=== PATIENT | male | born 1960 | race Caucasian/White ===

== ENCOUNTER 2020-10-18 07:32 | Outpatient (REF) | payer BC, SELFPAY ==
[2020-10-18 11:26] LABS: MANUAL DIFF FLAG NO
[2020-10-18 11:39] LABS: Basophils Percent Auto 0.7 % (0-2); Eosinophils Absolute Auto 0.2 X10*3/uL (0.0-0.4); Eosinophils Percent Auto 3.2 % (0-4); Hematocrit 45.4 % (42-52); Hemoglobin 15.1 g/dl (14.0-18.0); Imm Gran Abs Auto 0.01 X10*3/uL (0.00-0.03); Imm Gran Pct Auto 0.2 % (0.0-0.4); Lymphocytes Absolute Auto 1.8 X10*3/uL (1.2-4.9); Mean Corpuscular HGB Conc 33.3 g/dl (31.0-36.0); Mean Corpuscular Hemoglobin 30.4 pg (27.0-33.0); Mean Corpuscular Volume 91.5 fL (80-98); Monocytes Absolute Auto 0.4 X10*3/uL (0.1-1.2); Monocytes Percent Auto 7.3 % (2-11); Neutrophils Absolute Auto 3.5 X10*3/uL (2.0-8.3); Neutrophils Percent Auto 58.6 % (45-73); Platelet Count 268 X10*3/uL (160-400); Red Blood Count 4.96 X10*6/uL (4.60-5.80); Red Cell Distribution Width 12.5 % (11.0-16.0)
[2020-10-18 12:10] LABS: Prostate Specific Antigen 0.82 ng/mL (<0.05-4.0)
[2020-10-18 12:17] LABS: Alanine Aminotransferase 23 U/L (0-40); Albumin Level 4.7 g/dL (3.5-5.0); Alkaline Phosphatase 51 U/L (39-117); Anion Gap 12 (12-20); Aspartate Amino Transferase 20 U/L (5-37); Bilirubin Total 0.6 mg/dL (0.0-1.0); Blood Urea Nitrogen 19 mg/dL (9-16); Calcium 9.4 mg/dL (8.4-10.2); Carbon Dioxide 26 mmol/L (22-29); Chloride 105 mmol/L (96-108); Cholesterol 190 mg/dL; Estimated Glomerular Filt Rate > 60; Glucose Fasting 89 mg/dL (60-99); HDL Cholesterol 46 mg/dL; LDL Cholesterol Calculated 120 mg/dl; Potassium 4.3 mmol/L (3.3-5.1); Sodium 139 mmol/L (135-145); Total Protein 7.6 g/dL (6.5-8.0); Triglycerides 123 mg/dL
== END 2020-10-18 07:33 | disposition home or self-care (01) ==
LOC: HO.HMGCLDS 07:32
PROVIDERS: PCP Internal Medicine Medical Oncology; Visit Provider Internal Medicine Medical Oncology
DX: Z12.5 Encounter for screening for malignant neoplasm of prostate (principal); E66.3 Overweight; N40.0 Benign prostatic hyperplasia without lower urinary tract symptoms
CPT/HCPCS: 36415; 80053; 80061; 84153; 85025

== ENCOUNTER 2020-11-08 11:56 | Outpatient (REF) | payer BC, SELFPAY ==
[2020-11-08 15:08] LABS: Free T4 (Free Thyroxine) 0.83 ng/dL (0.71-1.85); Thyroid Stimulating Hormone 1.93 uIU/mL (0.32-4.0)
== END 2020-11-08 11:57 | disposition home or self-care (01) ==
LOC: HO.HMGCLDS 11:56
PROVIDERS: PCP Internal Medicine Medical Oncology; Visit Provider Internal Medicine Medical Oncology
DX: E78.5 Hyperlipidemia, unspecified (principal); E66.3 Overweight
CPT/HCPCS: 36415; 84439; 84443

== ENCOUNTER 2021-10-25 07:04 | Outpatient (REF) | payer BC, SELFPAY ==
[2021-10-25 11:06] LABS: MANUAL DIFF FLAG NO
[2021-10-25 11:19] LABS: Basophils Absolute Auto 0.1 X10*3/uL (0.0-0.2); Eosinophils Absolute Auto 0.2 X10*3/uL (0.0-0.4); Eosinophils Percent Auto 3.3 % (0-4); Hematocrit 41.7 % (42.0-52.0); Hemoglobin 14.1 g/dl (14.0-18.0); Imm Gran Abs Auto 0.02 X10*3/uL (0.00-0.03); Imm Gran Pct Auto 0.4 % (0.0-0.4); Lymphocytes Absolute Auto 1.7 X10*3/uL (1.2-4.9); Lymphocytes Percent Auto 33.2 % (20-40); Mean Corpuscular HGB Conc 33.8 g/dl (31.0-36.0); Mean Corpuscular Hemoglobin 30.4 pg (27.0-33.0); Mean Corpuscular Volume 89.9 fL (80.0-98.0); Mean Platelet Volume 10.1 fL (9.4-12.4); Monocytes Absolute Auto 0.4 X10*3/uL (0.1-1.2); Monocytes Percent Auto 7.6 % (2-11); Neutrophils Absolute Auto 2.8 x10*3/uL (2.0-8.3); Neutrophils Percent Auto 54.5 % (45-73); Platelet Count 254 X10*3/uL (160-400); Red Blood Count 4.64 X10*6/uL (4.60-5.80); Red Cell Distribution Width 12.7 % (11.0-16.0); White Blood Count 5.1 X10*3/uL (4.8-10.8)
[2021-10-25 11:41] LABS: Alanine Aminotransferase 27 U/L (0-40); Albumin Level 4.4 g/dL (3.5-5.0); Alkaline Phosphatase 45 U/L (39-117); Anion Gap 10 (12-20); Aspartate Amino Transferase 28 U/L (5-37); Bilirubin Total 0.8 mg/dL (0.0-1.0); Blood Urea Nitrogen 16 mg/dL (9-16); Calcium 9.3 mg/dL (8.4-10.2); Carbon Dioxide 25 mmol/L (22-29); Chloride 107 mmol/L (96-108); Cholesterol 222 mg/dL; Estimated Glomerular Filt Rate > 60; Glucose Fasting 92 mg/dL (60-99); HDL Cholesterol 42 mg/dL; LDL Cholesterol Calculated 155 mg/dl; Potassium 4.3 mmol/L (3.3-5.1); Sodium 138 mmol/L (135-145); Total Protein 7.2 g/dL (6.5-8.0); Triglycerides 129 mg/dL
[2021-10-25 11:47] LABS: Free T4 (Free Thyroxine) 0.87 ng/dL (0.71-1.85); Thyroid Stimulating Hormone 3.05 uIU/mL (0.32-4.0)
== END 2021-10-25 07:05 | disposition home or self-care (01) ==
LOC: HO.HMGCLDS 07:04
PROVIDERS: Visit Provider Internal Medicine Medical Oncology
DX: E66.3 Overweight (principal); E78.5 Hyperlipidemia, unspecified
CPT/HCPCS: 36415; 80053; 80061; 84439; 84443; 85025

== ENCOUNTER 2022-02-19 06:49 | Outpatient (REF) | payer BC, SELFPAY ==
[2022-02-19 11:23] LABS: MANUAL DIFF FLAG NO
[2022-02-19 11:41] LABS: Basophils Absolute Auto 0.1 X10*3/uL (0.0-0.2); Basophils Percent Auto 0.9 % (0-2); Eosinophils Absolute Auto 0.2 X10*3/uL (0.0-0.4); Eosinophils Percent Auto 3.5 % (0-4); Hematocrit 43.8 % (42.0-52.0); Hemoglobin 14.7 g/dl (14.0-18.0); Imm Gran Abs Auto 0.01 X10*3/uL (0.00-0.03); Imm Gran Pct Auto 0.2 % (0.0-0.4); Lymphocytes Absolute Auto 1.9 X10*3/uL (1.2-4.9); Lymphocytes Percent Auto 34.6 % (20-40); Mean Corpuscular HGB Conc 33.6 g/dl (31.0-36.0); Mean Corpuscular Hemoglobin 29.8 pg (27.0-33.0); Mean Corpuscular Volume 88.8 fL (80.0-98.0); Mean Platelet Volume 9.8 fL (9.4-12.4); Monocytes Absolute Auto 0.4 X10*3/uL (0.1-1.2); Neutrophils Absolute Auto 2.8 x10*3/uL (2.0-8.3); Neutrophils Percent Auto 52.8 % (45-73); Platelet Count 242 X10*3/uL (160-400); Red Blood Count 4.93 X10*6/uL (4.60-5.80); Red Cell Distribution Width 12.5 % (11.0-16.0); White Blood Count 5.4 X10*3/uL (4.8-10.8)
[2022-02-19 12:00] LABS: Prostate Specific Antigen 0.63 ng/mL (<0.05-4.0)
[2022-02-19 13:38] LABS: Alanine Aminotransferase 28 U/L (0-40); Albumin Level 4.5 g/dL (3.5-5.0); Alkaline Phosphatase 46 U/L (39-117); Anion Gap 14 (12-20); Aspartate Amino Transferase 23 U/L (5-37); Bilirubin Total 0.5 mg/dL (0.0-1.0); Blood Urea Nitrogen 16 mg/dL (9-16); Calcium 9.4 mg/dL (8.4-10.2); Carbon Dioxide 22 mmol/L (22-29); Chloride 107 mmol/L (96-108); Cholesterol 206 mg/dL; Estimated Glomerular Filt Rate > 60; Glucose Fasting 93 mg/dL (60-99); HDL Cholesterol 41 mg/dL; LDL Cholesterol Calculated 137 mg/dl; Potassium 4.2 mmol/L (3.3-5.1); Sodium 139 mmol/L (135-145); Total Protein 7.3 g/dL (6.5-8.0); Triglycerides 142 mg/dL
== END 2022-02-19 06:50 | disposition home or self-care (01) ==
LOC: HO.HMGCLDS 06:49
PROVIDERS: PCP Internal Medicine Medical Oncology; Visit Provider Internal Medicine Medical Oncology
DX: E78.5 Hyperlipidemia, unspecified (principal); E66.3 Overweight; N40.0 Benign prostatic hyperplasia without lower urinary tract symptoms; Z12.5 Encounter for screening for malignant neoplasm of prostate
CPT/HCPCS: 36415; 80053; 80061; 84153; 85025

== ENCOUNTER 2023-02-27 06:33 | Outpatient (REF) | payer BC, SELFPAY ==
[2023-02-27 11:21] LABS: MANUAL DIFF FLAG NO
[2023-02-27 11:50] LABS: Basophils Percent Auto 0.6 % (0-2); Eosinophils Absolute Auto 0.2 X10*3/uL (0.0-0.4); Eosinophils Percent Auto 3.1 % (0-4); Hematocrit 42.3 % (42.0-52.0); Hemoglobin 14.6 g/dl (14.0-18.0); Imm Gran Abs Auto 0.04 X10*3/uL (0.00-0.03); Imm Gran Pct Auto 0.8 % (0.0-0.4); Lymphocytes Absolute Auto 2.1 X10*3/uL (1.2-4.9); Lymphocytes Percent Auto 39.6 % (20-40); Mean Corpuscular HGB Conc 34.5 g/dl (31.0-36.0); Mean Corpuscular Hemoglobin 30.9 pg (27.0-33.0); Mean Corpuscular Volume 89.4 fL (80.0-98.0); Mean Platelet Volume 9.6 fL (9.4-12.4); Monocytes Absolute Auto 0.4 X10*3/uL (0.1-1.2); Monocytes Percent Auto 8.4 % (2-11); Neutrophils Absolute Auto 2.5 x10*3/uL (2.0-8.3); Neutrophils Percent Auto 47.5 % (45-73); Platelet Count 244 X10*3/uL (160-400); Red Blood Count 4.73 X10*6/uL (4.60-5.80); Red Cell Distribution Width 12.5 % (11.0-16.0); White Blood Count 5.2 X10*3/uL (4.8-10.8)
[2023-02-27 12:20] LABS: Alanine Aminotransferase 35 U/L (0-40); Albumin Level 4.4 g/dL (3.5-5.0); Alkaline Phosphatase 45 U/L (39-117); Anion Gap 12 (12-20); Aspartate Amino Transferase 30 U/L (5-37); Bilirubin Total 0.6 mg/dL (0.0-1.0); Blood Urea Nitrogen 13 mg/dL (9-16); Calcium 9.1 mg/dL (8.4-10.2); Carbon Dioxide 24 mmol/L (22-29); Chloride 107 mmol/L (96-108); Cholesterol 214 mg/dL (<200); Estimated Glomerular Filt Rate > 60; Glucose Fasting 91 mg/dL (60-99); HDL Cholesterol 37 mg/dL (>40); LDL Cholesterol Calculated 139 mg/dL (<100); Sodium 139 mmol/L (135-145); Total Protein 7.4 g/dL (6.5-8.0); Triglycerides 190 mg/dL (<150)
[2023-02-27 12:31] LABS: Prostate Specific Antigen 0.81 ng/mL (<0.05-4.0)
== END 2023-02-27 06:34 | disposition home or self-care (01) ==
LOC: HO.HMGCLDS 06:33
PROVIDERS: PCP Internal Medicine Medical Oncology; Visit Provider Internal Medicine Medical Oncology
DX: Z00.00 Encounter for general adult medical examination without abnormal findings (principal); Z12.5 Encounter for screening for malignant neoplasm of prostate; E66.3 Overweight; E78.5 Hyperlipidemia, unspecified
CPT/HCPCS: 36415; 80053; 80061; 84153; 85025

== ENCOUNTER 2023-06-26 06:44 | Outpatient (REF) | payer BC, SELFPAY ==
[2023-06-26 11:30] LABS: MANUAL DIFF FLAG NO
[2023-06-26 11:56] LABS: Basophils Absolute Auto 0.1 X10*3/uL (0.0-0.2); Basophils Percent Auto 0.7 % (0-2); Eosinophils Absolute Auto 0.1 X10*3/uL (0.0-0.4); Eosinophils Percent Auto 1.8 % (0-4); Hematocrit 43.1 % (42.0-52.0); Hemoglobin 14.7 g/dl (14.0-18.0); Imm Gran Abs Auto 0.02 X10*3/uL (0.00-0.03); Imm Gran Pct Auto 0.3 % (0.0-0.4); Lymphocytes Absolute Auto 1.7 X10*3/uL (1.2-4.9); Lymphocytes Percent Auto 23.3 % (20-40); Mean Corpuscular HGB Conc 34.1 g/dl (31.0-36.0); Mean Corpuscular Hemoglobin 30.4 pg (27.0-33.0); Mean Corpuscular Volume 89.2 fL (80.0-98.0); Mean Platelet Volume 9.9 fL (9.4-12.4); Monocytes Absolute Auto 0.6 X10*3/uL (0.1-1.2); Monocytes Percent Auto 8.1 % (2-11); Neutrophils Absolute Auto 4.9 x10*3/uL (2.0-8.3); Neutrophils Percent Auto 65.8 % (45-73); Platelet Count 230 X10*3/uL (160-400); Red Blood Count 4.83 X10*6/uL (4.60-5.80); Red Cell Distribution Width 12.5 % (11.0-16.0); White Blood Count 7.4 X10*3/uL (4.8-10.8)
[2023-06-26 12:33] LABS: Alanine Aminotransferase 22 U/L (0-40); Albumin Level 4.4 g/dL (3.5-5.0); Alkaline Phosphatase 49 U/L (39-117); Anion Gap 13 (12-20); Aspartate Amino Transferase 23 U/L (5-37); Bilirubin Total 0.8 mg/dL (0.0-1.0); Blood Urea Nitrogen 11 mg/dL (9-16); Calcium 9.3 mg/dL (8.4-10.2); Carbon Dioxide 24 mmol/L (22-29); Chloride 107 mmol/L (96-108); Cholesterol 196 mg/dL (<200); Estimated Glomerular Filt Rate > 60; Glucose Fasting 91 mg/dL (60-99); HDL Cholesterol 45 mg/dL (>40); LDL Cholesterol Calculated 119 mg/dL (<100); Potassium 3.8 mmol/L (3.3-5.1); Sodium 140 mmol/L (135-145); Total Protein 7.7 g/dL (6.5-8.0); Triglycerides 160 mg/dL (<150)
[2023-06-26 14:21] LABS: Prostate Specific Antigen 1.15 ng/mL (<0.05-4.0)
== END 2023-06-26 06:45 | disposition home or self-care (01) ==
LOC: HO.HMGCLDS 06:44
PROVIDERS: PCP Internal Medicine Medical Oncology; Visit Provider Internal Medicine Medical Oncology
DX: Z00.00 Encounter for general adult medical examination without abnormal findings (principal); Z12.5 Encounter for screening for malignant neoplasm of prostate; E66.3 Overweight; N40.0 Benign prostatic hyperplasia without lower urinary tract symptoms; E78.5 Hyperlipidemia, unspecified
CPT/HCPCS: 36415; 80053; 80061; 84153; 85025

== ENCOUNTER 2023-11-04 06:18 | Day surgery (SDC) | payer BC, SELFPAY ==
[2023-10-30 13:13] VITALS: BMI 27.9
[2023-11-04 06:27] VITALS: BMI 26.9
[2023-11-04 06:46] VITALS: BP 140/87; PULSE 65; RESP 16; TEMP 35.8; O2SAT 98
[2023-11-04] MEDS: Lactated Ringers 1,000 ML 80 ML IVCONT (06:48)
--- NOTE | 2023-11-04 07:42 | HO.ANESPROP2 ---
[facility] Past Medical History Medical History (Updated 10/30/23 @ 13:16 by Shonna Clark RN) Borderline high cholesterol Family History Family History (Updated 05/25/20 @ 15:19 by ISABEL Raimrez, MADI) Father Low blood pressure Mother Thyroid disease Low blood pressure Maternal Uncle Diabetes mellitus Son No problems noted. Son No problems noted. Son No problems noted. Family history of problems with anesthesia: No Surgical History Surgical History (Updated 05/25/20 @ 15:16 by ISABEL Ramirez, MADI) History of inguinal hernia repair History of Problems with Anesthesia: No Social History Social History (Updated 10/30/23 @ 13:14 by Shonna Clark RN) Household Members: Spouse Patient Tobacco Use Status: Never used Tobacco Use of substances other than those prescribed or required for medical reasons: No Are you DNR?: No Advance Directives: No Advance Directives Information Provided: Yes Meds Allergies Allergy/AdvReac Type Severity Reaction Status Date / Time hazelnut Allergy Intermediate ear itching Verified 10/30/23 13:13 Active Medications: Current Medications Lactated Ringer's (Lr) 1,000 mls @ 80 mls/hr IVCONT .[id number] SEMAJ Last Admin: 11/04/23 06:48 Dose: 80 mls/hr Sodium Biphosphate/Sodium Phosphate (Sodium Phosphate,Benson-Dibasic 133 Ml Enema) 133 ml DC ONCE PRN PRN Reason: Poor Colonoscopy Prep Results Exam Height,Weight and Vital Signs: Height 6 ft Weight 89.811 kg Last Vital Signs Temp 96.5 F L 11/04/23 06:46 Pulse 65 11/04/23 06:46 Resp 16 11/04/23 06:46 BP 140/87 H 11/04/23 06:46 Pulse Ox 98 11/04/23 06:46 O2 Del Method Room Air 11/04/23 06:46 Airway Mallampati Class: II TM Dist: >3cm Neck ROM: Full Assessment and Plan Assessment Anesthesia Assessment: Anesthesia Plan Discussed and Chart Reviewed Final Anesthetic Review Family History of Problems with Anesthesia: No History of Problems with Anesthesia: No NPO: Yes ASA Class: II Final Preanesthetic Review: No Changes in Pt Med Stat, Meds/Allgs Chart Reviewed, Consent Obtained/Reviewed and Anes Risks/Benef Reviewed Patient Risk: Low Procedure Risk: Low Anesthetic Plan Anesthetic Plan: TIVA Disposition: Standard PACU
[2023-11-04 08:17] VITALS: BP 105/70; PULSE 77; RESP 16; TEMP 36.6; O2SAT 94
--- NOTE | 2023-11-04 08:21 | P.BOP_ITS ---
Brief Operative Note Date of Service: 10/28/23 Pre-op diagnosis: Screening Post-op diagnosis: other (Polyp) Procedure: Colonoscopy to the cecum and TI with cold snare polypectomy x 1 Surgeon: Ajit Andres MD Anesthesia: MAC Was an Burglary Investigator used for this Procedure?: No Estimated blood loss (mL): 2.0 Pathology: other (A. Transverse colon polyp) Condition: stable Disposition: PACU
[2023-11-04 08:32] VITALS: BP 117/72; PULSE 69; RESP 16; TEMP 36.6; O2SAT 96
--- NOTE | 2023-11-04 08:38 | OP_ITS ---
DATE OF SERVICE: 11/04/2023 SURGEON: Ajit Andres MD INDICATIONS: The patient presents for evaluation of colorectal cancer screening and personal history of a tubular adenoma. Full consent was obtained from him for this, including risks of bleeding and perforation. PREOPERATIVE DIAGNOSIS: POSTOPERATIVE DIAGNOSIS: PROCEDURE PERFORMED: Colonoscopy to the cecum and terminal ileum with cold snare polypectomy. ESTIMATED BLOOD LOSS: COMPLICATIONS: ANESTHESIA: Monitored anesthesia care. ASSISTANTS: SPECIMENS: PREOPERATIVE DIAGNOSES: Colorectal cancer screening and history of tubular adenoma. POSTOPERATIVE DIAGNOSES: Colorectal cancer screening and history of tubular adenoma, small colon polyp, diverticulosis, and internal hemorrhoids. DESCRIPTION OF PROCEDURE: The patient was placed in the left lateral decubitus position. The digital rectal exam revealed no abnormalities. The Olympus video pediatric colonoscope was entered into the rectum and advanced easily to the cecum. Once in the cecum, I did identify normal-appearing cecal pouch with appendiceal orifice and a normal-appearing ileocecal valve. The terminal ileum was cannulated and appeared normal. The scope was withdrawn back in the colon. The entire cecum and ileocecal valve appeared normal. The scope was then slowly withdrawn, assessing all mucosal surfaces carefully. Preparation was excellent. In the proximal transverse colon was a flat, approximately 5 mm polyp, which was removed by cold snare polypectomy and recovered by suction. The polypectomy site appeared clean, without any sign of residual polyp nor bleeding. I did not visualize any other polyps, colitis, nor angiodysplasia. There was a mild amount of sigmoid diverticulosis. In the rectum, scope was retroflexed visualizing internal hemorrhoids, but no other pathology. The rectal mucosa appeared normal. Scope was straightened and withdrawn from the patient. He tolerated the procedure well and was returned to recovery area in stable condition. IMPRESSION: 1. Colon polyp. 2. Diverticulosis. 3. Internal hemorrhoids. PLAN: The results of the pathology will be checked. I would recommend a repeat colonoscopy in 5 years. He was advised not to use any aspirin and NSAIDs for 1 week. This has been discussed with his . MD BARDY Greer/SHYANN / [id number]
== END 2023-11-04 09:17 | disposition home or self-care (01) ==
PROVIDERS: PCP Internal Medicine Medical Oncology; Visit Provider Internal Medicine
PROC: 0DJD8ZZ Inspection of Lower Intestinal Tract, Via Natural or Artificial Opening Endoscopic (ICD-10-PCS; CPT 45378; principal; 2023-11-04 07:30)
DX: Z12.11 Encounter for screening for malignant neoplasm of colon (principal); K63.5 Polyp of colon; K57.30 Diverticulosis of large intestine without perforation or abscess without bleeding; K64.8 Other hemorrhoids; Z86.010 Personal history of colon polyps
CPT/HCPCS: 45385; 88305; J2704

== ENCOUNTER 2024-05-16 06:31 | Outpatient (REF) | payer BC, SELFPAY ==
[2024-05-16 10:32] LABS: MANUAL DIFF FLAG NO
[2024-05-16 10:33] LABS: Basophils Percent Auto 0.7 % (0-2); Eosinophils Absolute Auto 0.1 X10*3/uL (0.0-0.4); Eosinophils Percent Auto 2.2 % (0-4); Hematocrit 43.2 % (42.0-52.0); Hemoglobin 14.8 g/dl (14.0-18.0); Imm Gran Abs Auto 0.01 X10*3/uL (0.00-0.03); Imm Gran Pct Auto 0.2 % (0.0-0.4); Lymphocytes Absolute Auto 2.1 X10*3/uL (1.2-4.9); Lymphocytes Percent Auto 38.4 % (20-40); Mean Corpuscular HGB Conc 34.3 g/dl (31.0-36.0); Mean Corpuscular Hemoglobin 30.7 pg (27.0-33.0); Mean Corpuscular Volume 89.6 fL (80.0-98.0); Mean Platelet Volume 9.8 fL (9.4-12.4); Monocytes Absolute Auto 0.4 X10*3/uL (0.1-1.2); Monocytes Percent Auto 7.3 % (2-11); Neutrophils Absolute Auto 2.8 x10*3/uL (2.0-8.3); Neutrophils Percent Auto 51.2 % (45-73); Platelet Count 267 X10*3/uL (160-400); Red Blood Count 4.82 X10*6/uL (4.60-5.80); Red Cell Distribution Width 12.7 % (11.0-16.0); White Blood Count 5.4 X10*3/uL (4.8-10.8)
[2024-05-16 11:11] LABS: Prostate Specific Antigen 0.99 ng/mL (<0.05-4.0)
[2024-05-16 11:24] LABS: Alanine Aminotransferase 37 U/L (0-40); Albumin Level 4.3 g/dL (3.5-5.0); Alkaline Phosphatase 49 U/L (39-117); Anion Gap 10 (12-20); Aspartate Amino Transferase 37 U/L (5-37); Bilirubin Total 0.8 mg/dL (0.0-1.0); Blood Urea Nitrogen 15 mg/dL (9-16); Calcium 8.7 mg/dL (8.4-10.2); Carbon Dioxide 25 mmol/L (22-29); Chloride 106 mmol/L (96-108); Cholesterol 199 mg/dL (<200); Estimated Glomerular Filt Rate > 60; Glucose Fasting 91 mg/dL (60-99); HDL Cholesterol 43 mg/dL (>40); LDL Cholesterol Calculated 125 mg/dL (<100); Potassium 3.8 mmol/L (3.3-5.1); Sodium 137 mmol/L (135-145); Total Protein 7.5 g/dL (6.5-8.0); Triglycerides 157 mg/dL (<150)
--- OUTSIDE RECORDS SUMMARY | 2024-05-18 12:29 | XMS_ITS ---
Author Organization Ajit Mina III, MD Address [address] [place] [address] Care Team Providers Care Structural Steel Fitter Name Role Phone Ajit Mina Primary Care Provider REASON FOR VISIT told patient to call Social History Sex Assigned At : Social History Observation Description Sex Assigned At Male Encounters Encounter Location Date Provider Diagnosis Ajit Mina III, MD [address] [place] [address] [place] [address] 05/03/2024 Ajit Mina Plan Of Treatment Next Appt Details Provider Name:Ajit Mina, 05/18/2024 02:00:00 PM, [address] [place] [address] [place], [address], Progress Notes * Rinku QUEZADAjDOB:[birth year] (63 yo M)Acc No.[id number]:05/03/2024 Patient:?Theo QUEZADA :1960???Age:63 Y???Sex:Male Address:[address] [place] [address], [phone] * true * Date:? Generated for Printi jose/Perla/eTransmitting on:?05/18/2024 12:29 PM EST
--- OUTSIDE RECORDS SUMMARY | 2024-05-18 12:29 | XMS_ITS ---
Author Organization Ajit Mina III, MD Address [address] [place] [address] Care Team Providers Care Outsole Beveler Name Role Phone Ajit Mina Primary Care Provider [phone] Social History Sex Assigned At : Social History Observation Description Sex Assigned At Male Encounters Encounter Location Date Provider Diagnosis Ajit Mina III, MD [address] [place] [address] [place] [address] 04/27/2024 Ajit Mina Plan Of Treatment Next Appt Details Provider Name:Ajit Mina, 05/18/2024 02:00:00 PM, [address] [place] [address] [address] [place], [place], [address], Progress Notes * Todd QUEZADAOB:[birth year] (63 yo M)Acc No.[id number]:04/27/2024 Patient:?Theo QUEZADA :1960???Age:63 Y???Sex:Male Address:[address] [place] [address], [address] * true * Date:? Generated for Fer garcia/Perla/eTransmitting on:?05/18/2024 12:29 PM EST
--- OUTSIDE RECORDS SUMMARY | 2024-05-18 12:30 | XMS_ITS ---
Author Organization Ajit Mina III, MD Address [address] [place] [address] Care Team Providers Care Route Returner Name Role Phone Ajit Mina Primary Care Provider [phone] Allergies Allergen (clinical drug ingredient) Drug/Non Drug [...] Date Provider Diagnosis Ajit Mina III, MD [address] [place] [address] [place] [phone] 04/27/2024 Ajit Mina Immunization, tetanu s toxoid [...] up on infected dog bite Provider Name:Ajit Mina, 05/18/2024 02:00:00 PM, [address] [place] [address] [place], [place], [phone], Progress Notes * Alla QUEZADA:[birth year] (63 yo M)Acc No.[id number]:04/27/2024 Patient:?Theo QUEZADA Provider:?Ajit Mina MD :1960???Age:63 Y???Sex:Male Leland e:04/27/2024 Address:[address] [place], [place] [id number] Subjective: * Chief Complaints: * ???Domestic dog bite left monte nd April 244Cellulitis left handBenign prostatic hypertrophyHyperlipidemiaAllergies * HPI: ???COVID-19 Screening:?Questions?Have you experienced fever, chills, cough, sore throat, shortness of breath, difficulty breathing, muscle aches, loss of taste or smell??No ?Have you been exposed to the virus within the last 10 days??No ?Have you travelled internationally in the last 10 days??No ?Have you been exposed to COVID-19 in the past??Yes ???:? The patient, a 63-year-old male, presented with [...] patient was not allergic to penicillin. * ROS:?General/Constitutional:?pain?Infected dog bite left hand.?Chills?denies.?Fatigue?admits.?Denies?Fever,?denies.?ENT:?Decreased hearing?denies.?Respiratory:?Cough?denies.?Cardiovascular:?Chest pain with exertion?denies.?Dyspnea on exertion?denies.?Shortness of breath?denies.?Gastrointestinal:?Constipation?occasional.?Decreased appetite?denies.?Diarrhea?denies.?Heartburn?denies.?Nausea?denies.?Rectal bleeding?denies.?Vomiting?denies.?Hematology:?bruising?denies.?petechiae?denies.?Swollen glands?none have been noted.?Genitourinary:?Frequent urination?once a night.?Musculoskeletal:?Muscle aches?denies.?Painful joints?denies.?Sciatica?denies.?Weakness?denies.?Skin:?Itching?denies.?Rash?denies.?Skin lesion(s)?denies.?Neurologic:?Difficulty speaking?denies.?Dizziness?denies.?Headache?denies.?Low back pain?denies.?Psychiatric:?Depressed mood?denies.? * Medical History:? * Surgical History:?Left Ingui nal hernia repair, Dr. Almanzar, [facility] 2017second left inguinal repair 12/2016Colonoscopy 2018No history * Hospitalization/Major Diagno stic Procedure:?No history * Family History:?Father: sherly e 90 yrs, cad,overweight,.?Mother: alive 89 yrs, Hyperthyroidism, treatment-related hypothyroidism.?Son(s): alive.?Maternal uncle: alive, diagnosed with DM.?1 brother(s) . 3 son(s) - healthy. .? His father is living with hypertension coronary [...] substance abuse or mental illness. * Social History:?Tobacco Use:?Tobacco Use/Smoking?Patient is a?nonsmoker ?Additional Findings: Tobacco Non-User?Aggressive non-smoker ???He was born in [place]. 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 He has no toxic exposures or history of TB. He has been to Edie for 29 years. He has 3 sons, Indio Brown and Charlie. He is [employer] and lives in [facility]. He works for [employer] in [place]. * Medications:?TakingClobetaso l Propionate 0.05 % Cream 1 application Externally Twice a day Taking Clobetasol Propionate 0.05 % Cream 1 application Externally Twice a day DiscontinuedClobetasol Propionate 0.05 % Ointment 1 application Externally Twice a day Medication List reviewed and reconciled with the patientDiscontinued Clobetasol Propionate 0.05 % Ointment 1 application Externally Twice a day Medication List reviewed and reconciled with the patient * Allergies:?Seasonal ICno[All ergies Verified] Objective: * Vitals:?Ht: 72.5, Wt: 199, B MN:26.62, BP: 136/99,130/85, HR: 69, Temp: 98.1, Ht- cm: 184.15, Wt-k.26. * Examination: ???General Examination: ?GENERAL APPEARANCE:?pleasant, well nourished, well developed, in no acute distress, calm and relaxed, overweight, man.?HEAD:?atraumatic, normocephalic.?EYES:?eomi, perrla, anicteric, conjugate.?EARS:?normal.?NOSE:?septum intact.?ORAL CAVITY:?normal, unremarkable.?NECK/THYROID:?no jugular venous distention, no carotid bruit, thyroid normal.?LYMPH NODES:?no enlarged lymph nodes,spleen normal.?SKIN:?no suspicious lesions, anicteric.?HEART:?no clicks, gallops, murmurs, or rubs, regular rhythm, S1, S2 normal, no s3, or vascular bruits.?LUNGS:?clear to auscultation .?BREASTS:??no masses palpable bilaterally.?ABDOMEN:?bowel sounds normal, no ascites, no organomegaly, no mass, overweight.?RECTAL EXAM:?not examined.?MUSCULOSKELETAL:?The risks erythema of the left hand over the web space to the left thumb in the dorsum of the hand to the wrist, 3 puncture wounds which are scabbed over present web space left hand, web spaces swollen without drainage.?PERIPHERAL PULSES:?normal.?NEUROLOGIC:?alert and oriented, cranial nerves 2-12 grossly intact, deep tendon reflexes 2+ symmetrical, motor strength normal upper and lower extremities, sensory exam intact.?PSYCH:?alert, oriented.? Assessment: * Assessment: 1.?Immunization, tetanus tox oid - Z23 (Primary)???Notes :Because of the wound from the animal bite he was given tetanus vaccine today.???2.?Open bite of left hand, initial encounter - S61.052A???Notes :There is clearly cellulitis of the left hand the puncture wound on the web space is not training although abscess can be palpated.? He was given an antibiotic and will use warm soaks to encourage drainage.? Follow-up visit in 48 hours was arranged.???3.?Overweight - E66.3???Notes :We continued to discuss diet and nutrition. A made a plan to lose weight, had a rate of one half of a pound per week.???4.?BPH (benign prostatic hyperplasia) - N40.0???Notes :We have discussed lifestyle modification as a way to reduce nocturia.???5.?Environmental allergies - Z91.09???Notes :He has not yet begun to have allergies. We discussed the use of nondrowsy antihistamines.??? Plan: * Treatment: 2.?Others? Continue Clobetasol Propionate Cream, 0.05 %, 1 application, Externally, Twice a day.?? * Immunizations:? Tetanus and Diphtheria Toxoids Adsorbed : 0.5 mL (Dose No:2) (Route: Intramuscular) given by Brayan Murray on Left Arm ???Immunization record has been reviewed and updated. * Procedure Codes:?84322 TD VA CCINE NO PRSRV >/= 7 [id number] Td (adult) * Preventive Medicine:? ??Counseling:?Care goal follow-up plan:?Counseling for abnormal BMI given?Yes ?Above Normal BMI Follow-up?Dietary management education, guidance, and counseling, Dietary needs education, Exercise promotion: strength training, Exercise promotion: stretching, Feeding regime, Giving encouragement to exercise, Lifestyle education regarding diet, Nutrition / feeding management, Nutrition therapy, Prescribed activity/exercise education, Prescribed diet education, Prescribed dietary intake, Special diet education, Weight monitoring , Intervention, Order not done: Medical or Other reason not done * Follow Up:?As Scheduled, May (Reason: OV, Annual visit and follow up on infected dog bite) * Images: * Sign off status: Completed true * Provider:?Ajit Mina MD Date:?04/09 Generated for Fer garcia/Perla/eTransmitting on:?05/18/2024 12:29 PM EST History and Physical Notes * HPI (History of Present Illness) Category Sub-Category Detail Notes COVID-19 Screening Questions Have you expe rienced fever, chills, cough, sore throat, shortness of breath, difficulty breathing, muscle aches, loss of taste or smell?: No Have you been exposed to the virus withi n the last 10 days?: No Have you travelled internationally in last 10 days?: No Have you been [...]
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
== END 2024-05-16 06:32 | disposition home or self-care (01) ==
LOC: HO.HMGCLDS 06:31
PROVIDERS: PCP Internal Medicine Medical Oncology; Visit Provider Internal Medicine Medical Oncology
DX: E66.3 Overweight (principal); E78.5 Hyperlipidemia, unspecified; N40.0 Benign prostatic hyperplasia without lower urinary tract symptoms; Z12.5 Encounter for screening for malignant neoplasm of prostate
CPT/HCPCS: 36415; 80053; 80061; 84153; 85025

== ENCOUNTER 2025-05-18 06:33 | Outpatient (REF) | payer BC, SELFPAY ==
--- OUTSIDE RECORDS SUMMARY | 2024-03-07 12:45 | XMS_ITS ---
Author Organization Ajit Mina III, MD Address [address] [place] [address] [place] [address] Care Team Providers Care Pony Edger Name Role Phone Dr. Ajit Mina III Primary Care Provider [phone] REASON FOR VISIT Annual Exam Social History Sex Assigned At : Social History Observation Description Sex Assigned At Male Encounters Encounter Location Date Provider Diagnosis Ajit Mina III, MD [address] [place] [address] [place] [address] 03/07/2024 Ajit Mina Plan Of Treatment Next Appt Details Provider Name:Ajit Mina , 05/23/2025 02:00:00 PM, [address] [place] [address] [place], [address], Progress Notes * Rinku QUEZADAjDOB:[birth year] (64 yo M)Acc No.[id number]:03/07/2024 Progress Notes Patient: Kalyan MOSSTheo Provider: Dustin Mina MD :1960 A ge:63 Y S ex:Male Date:03/07/2024 Address:[address] [place] [id number] Subjective: * Chief Complaints: * 1 . Annual Exam. * Medical History: Objective: * Vitals: Assessment: Plan: * Treatment: * Images: * The named appointment provid er may or may not be the originator of this progress note, and it is not deemed complete until electronically signed by the appointment provider. Sign off status: Pending * Provider: Dustin Mina MD Date: 0 03/07/2024 Generated for Fer garcia/Perla/Lizbet on: 1 07/19/2024 06:38 AM EST
--- OUTSIDE RECORDS SUMMARY | 2024-04-27 09:30 | XMS_ITS ---
Author Organization Ajit Mina III, MD Address [address] [place] [address] Care Team Providers Care Lever Miller Name Role Phone Dr. Ajit Mina III Primary Care Provider [phone] Allergies Allergen (clinical drug ingredient) Drug/Non Drug Allergy documented on EMR Reaction Allergy Type Onset Date Status Seasonal IC Unknown Drug Allergy Activ e REASON FOR VISIT Domestic dog bite left hand April 24, 2024, Cellulitis left hand, Benign prostatic hypertrophy, Hyperlipidemia, Allergies Medications Medication SIG (Take, Route, Frequency, Duration) Notes Start Date End Date Status Clobetasol Propionate 0.05 % 1 application Externally Twice a day 07/24/2023 Active Amoxicillin-Pot Clavulanate 875-125 MG 1 tablet Orally every 12 hrs for 10 days 04/27/2024 05/07/2024 Active Immunizations Vaccine Route Administration Date Status Comme nts Tetanus and Diphtheria Toxoids Adsorbed IM Intramuscular 04/27/2024 Administered Social History Tobacco Use: Social History Observation Description Date Details (start date - stop date) Never Smoker NA - NA Sex Assigned At : Social History Observation Description Sex Assigned At Male Tobacco Use/Smoking Question Answer Notes Patient is a nonsmoker Additional Findings: Tobacco Non-User Aggressive non-smoker Vital Signs Temperature 98.1 degrees Fahrenheit 04/27/20 24 Blood pressure systolic 136 mm Hg 04/27/20 24 Blood pressure diastolic 99, 130 mm Hg 024 Heart Rate 69 /min 04/27/2024 Height 72.5 in 04/27/2024 Weight 199 lbs 04/27/2024 BMI 26.62 kg/m2 04/27/2024 Encounters Encounter Location Date Provider Diagnosis Ajit Mina III, MD [address] [place] [address] [place] [address] 04/27/2024 Ajit Mina Immunization, tetanu s toxoid Z23 ; Open bite of left hand, initial encounter S61.452A ; Overweight E66.3 ; BPH (benign prostatic hyperplasia) N40.0 and Environmental allergies Z91.09 Assessments Encounter Date Diagnosis (ICD Code) Assessment Notes Treat ment Notes Treatment Clinical Notes 04/27/2024 Immunization, tetanus toxoid (ICD-10 - Z23) Because of the wound from the animal bite he was given tetanus vaccine today. 04/27/2024 Open bite of left hand, initial encounter (ICD-10 - S61.452A) There is clearly cellulitis of the left hand the puncture wound on the web space is not training although abscess can be palpated. He was given an antibiotic and will use warm soaks to encourage drainage. Follow-up visit in 48 hours was arranged. 04/27/2024 Overweight (ICD-10 - E66.3) We continued to discuss diet and nutrition. A made a plan to lose weight, had a rate of one half of a pound per week. 04/27/2024 BPH (benign prostatic hyperplasia) (ICD-10 - N40.0) We have discussed lifestyle modification as a way to reduce nocturia. 04/27/2024 Environmental allergies (ICD-10 - Z91.09) He has not yet begun to have allergies. We discussed the use of nondrowsy antihistamines. Plan Of Treatment Medication Medication Name Sig Start Date Stop Date Notes Clobetasol Propionate 0.05 % 1 applicati on Externally Twice a day 07/24/2023 Amoxicillin-Pot Clavulanate 875-125 MG 1 tablet Orally every 12 hrs for 10 days 04/27/2024 05/07/2024 Next Appt Details Follow Up: As Scheduled, May, Reason: OV, Annual visit and follow up on infected dog bite Provider Name:Ajit Mina , 05/23/2025 02:00:00 PM, [address] [place] [address] [address] [place], [place], [address], Progress Notes * Alla QUEZADA:[birth year] (63 yo M)Acc No.[id number]:04/27/2024 Patient: Theo ALONSO Provider: Dustin Mina MD :1960 A ge:63 Y S ex:Male Date:04/27/2024 Address:[address] [place], [place] [id number] Subjective: * Chief Complaints: * D omestic dog bite left hand April 244Cellulitis left handBenign prostatic hypertrophyHyperlipidemiaAllergies * HPI: C OVID-19 Screening: Questions H ave you experienced fever, chills, cough, sore throat, shortness of breath, difficulty breathing, muscle aches, loss of taste or smell? N o H ave you been exposed to the virus within the last 10 days? N o H ave you travelled internationally in the last 10 days? N o H ave you been exposed to COVID-19 in the past? Y es * : The patient, a 63-year-old male, presented with an infected dog bite that occurred two days prior to the visit. The bite was inflicted by his own dog. The patient reported that the area around the bite had become swollen and warm to touch, indicating cellulitis. He also mentioned that he had been feeling unwell, but denied having a fever. The patient had been monitoring the wound and decided to seek medical attention when he noticed the infection spreading. He also reported experiencing fluctuations in his blood pressure at home. The doctor noted that there were no pus or swollen lymph nodes present. The patient was not allergic to penicillin. * ROS: G eneral/Constitutional: pain I nfected dog bite left hand. C hills d enies.?Fatigue a dmits. D enies F ever, d enies. E NT: Decreased hearing d enies. R espiratory: Cough d enies. C ardiovascular: Chest pain with exertion d enies. D yspnea on exertion?denies. S hortness of breath d enies. G astrointestinal: Constipation o ccasional. D ecreased appetite d enies. D iarrhea d enies. H eartburn d enies. N ausea d enies. R ectal bleeding d enies. V omiting d enies. H ematology: bruising d enies. p etechiae d enies. S wollen glands n one have been noted. G enitourinary: Frequent urination o nce a night. M usculoskeletal: Muscle aches d enies. P ainful joints d enies. S ciatica d enies. W eakness d enies. S kin: Itching d enies. R arielle d enies. S kin lesion(s)?denies. N eurologic: Difficulty speaking d enies. D izziness d enies.?Headache d enies. L ow back pain d enies. P sychiatric: Depressed mood d enies. * Medical History: * Surgical History: L eft Inguinal hernia repair, Dr. Almanzar, [facility] 2017second left inguinal repair 12/2016Colonoscopy 2018No history * Hospitalization/Major Diagno stic Procedure: N o history * Family History: F ather: alive 90 yrs, cad,overweight,. M other: alive 89 yrs, Hyperthyroidism, treatment-related hypothyroidism. S on(s): alive. M aternal uncle: alive, diagnosed with DM. 1 brother(s) . 3 son(s) - healthy. . His father is living with hypertension coronary artery disease and he is overweight. His mother was treated for hyperthyroidism and is now on thyroid replacement. His mother's brother has diabetes mellitus. The patient has 3 healthy and well sounds. One uncle of COPD and lung cancer. There is no family history of breast cancer or ovarian cancer. He is not aware of any inherited cancer family syndromes. There is no family history of substance abuse. There is no family history of mental illness. The patient himself has no history of substance abuse or mental illness. * Social History: T obacco Use: T obacco Use/Smoking P atient is a n onsmoker A dditional Findings: Tobacco Non-User A ggressive non-smoker José Miguel davis was born in [place]. 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 He has no toxic exposures or history of TB. He has been to Edie for 29 years. He has 3 sons, [place]. He is Congregational and lives in [facility]. He works for [employer] in [place]. * Medications: T akingClobetasol Propionate 0.05 % Cream 1 application Externally Twice a day Taking Clobetasol Propionate 0.05 % Cream 1 application Externally Twice a day DiscontinuedClobetasol Propionate 0.05 % Ointment 1 application Externally Twice a day Medication List reviewed and reconciled with the patientDiscontinued Clobetasol Propionate 0.05 % Ointment 1 application Externally Twice a day Medication List reviewed and reconciled with the patient * Allergies: S easonal ICno[Allergies Verified] Objective: * Vitals: H t: 72.5, Wt: 199, BMI:26.62, BP: 136/99,130/85, HR: 69, Temp: 98.1, Ht-cm: 184.15, Wt-k.26. * Examination: G eneral Examination: GENERAL APPEARANCE: p leasant, well nourished, well developed, in no acute distress, calm and relaxed, overweight, man. HEAD: a traumatic, normocephalic. EYES: e zuleika, perrla, anicteric, conjugate. EARS: n ormal. NOSE: s eptum intact. ORAL CAVITY: n ormal, unremarkable. NECK/THYROID: n o jugular venous distention, no carotid bruit, thyroid normal. LYMPH NODES: n o enlarged lymph nodes,spleen normal. SKIN: n o suspicious lesions, anicteric. HEART: n o clicks, gallops, murmurs, or rubs, regular rhythm, S1, S2 normal, no s3, or vascular bruits. LUNGS: c lear to auscultation . BREASTS: no masses palpable bilaterally. ABDOMEN: b owel sounds normal, no ascites, no organomegaly, no mass, overweight. RECTAL EXAM: n ot examined. MUSCULOSKELETAL: T he risks erythema of the left hand over the web space to the left thumb in the dorsum of the hand to the wrist, 3 puncture wounds which are scabbed over present web space left hand, web spaces swollen without drainage. PERIPHERAL PULSES: n ormal. NEUROLOGIC: a lert and oriented, cranial nerves 2-12 grossly intact, deep tendon reflexes 2+ symmetrical, motor strength normal upper and lower extremities, sensory exam intact. PSYCH: a lert, oriented. Assessment: * Assessment: 1. I mmunization, tetanus toxoid - Z23 (Primary) N otes :Because of the wound from the animal bite he was given tetanus vaccine today. 2 . O pen bite of left hand, initial encounter - S61.452A N otes :There is clearly cellulitis of the left hand the puncture wound on the web space is not training although abscess can be palpated. He was given an antibiotic and will use warm soaks to encourage drainage. Follow-up visit in 48 hours was arranged. 3 . O verweight - E66.3 N otes :We continued to discuss diet and nutrition. A made a plan to lose weight, had a rate of one half of a pound per week. 4 . B PH (benign prostatic hyperplasia) - N40.0 N otes :We have discussed lifestyle modification as a way to reduce nocturia. 5 . E nvironmental allergies - Z91.09 N otes :He has not yet begun to have allergies. We discussed the use of nondrowsy antihistamines. Plan: * Treatment: 2. O thers Continue Clobetasol Propionate Cream, 0.05 %, 1 application, Externally, Twice a day. * Immunizations: Tetanus and Diphtheria Toxoids Adsorbed : 0.5 mL (Dose No:2) (Route: Intramuscular) given by Brayan Murray on Left Arm ???Immunization record has been reviewed and updated. * Procedure Codes: 9 0714 TD VACCINE NO PRSRV >/= 7 [id number] Td (adult) * Preventive Medicine: Counseling: C are goal follow-up plan: Counseling for abnormal BMI given Y es Above Normal BMI Follow-up D ietary management education, guidance, and counseling, Dietary needs education, Exercise promotion: strength training, Exercise promotion: stretching, Feeding regime, Giving encouragement to exercise, Lifestyle education regarding diet, Nutrition / feeding management, Nutrition therapy, Prescribed activity/exercise education, Prescribed diet education, Prescribed dietary intake, Special diet education, Weight monitoring , Intervention, Order not done: Medical or Other reason not done * Follow Up: A s Scheduled, May 18 (Reason: OV, Annual visit and follow up on infected dog bite) * Images: * Sign off status: Completed true * Provider: Dustin Mina MD Date: 06/27/2023 Generated for Destinyi ng/Perla/eTransmitting on: 07/19/2024 06:38 AM EST History and Physical Notes * HPI (History of Present Illness) Category Sub-Category Detail Notes COVID-19 Screening Questions Have you had any new onset fever, chills, cough, congestion, sore throat, shortness of breath, muscle aches?: No Have you been exposed to the virus withi n the last 10 days?: No [facility] you travelled [facility]?: No Have you been exposed to COVID-19 in the past?: Yes Examination Category Sub-Category Detail Notes General Examination GENERAL APPEARANCE: pleasant , well nourished, well developed, in no acute distress, calm and relaxed, overweight, man HEAD: atraumatic, normocep halic EYES: eomi, perrla, anicte sae, conjugate EARS: normal NOSE: septum intact NECK/THYROID: no jugular venous di stention, no carotid bruit, thyroid normal HEART: no clicks, gallops, murmurs, or rubs, regular rhythm, S1, S2 normal, no s3, or vascular bruits LUNGS: clear to auscultatio n ABDOMEN: bowel sounds normal, no ascites, no organomegaly, no mass, overweight NEUROLOGIC: alert and oriented, cranial nerves 2-12 grossly intact, deep tendon reflexes 2+ symmetrical, motor strength normal upper and lower extremities, sensory exam intact SKIN: no suspicious lesion s, anicteric PERIPHERAL PULSES: normal BREASTS: no masses palpable b ilaterally MUSCULOSKELETAL: The risks erythema o f the left hand over the web space to the left thumb in the dorsum of the hand to the wrist, 3 puncture wounds which are scabbed over present web space left hand, web spaces swollen without drainage LYMPH NODES: no enlarged lymph no graham,spleen normal RECTAL EXAM: not examined PSYCH: alert, oriented ORAL CAVITY: normal, unremarkable
--- OUTSIDE RECORDS SUMMARY | 2024-04-27 10:42 | XMS_ITS ---
Author Organization Ajit Mina III, MD Address [address] [place] [address] Care Team Providers Care Assistant County Attorney Name Role Phone Dr. Ajit Mina III Primary Care Provider [phone] Social History Sex Assigned At : Social History Observation Description Sex Assigned At Male Encounters Encounter Location Date Provider Diagnosis Ajit Mina III, MD [address] [place] [address] [place] [address] 04/27/2024 Ajit Mina Plan Of Treatment Next Appt Details Provider Name:Ajit Mina , 05/23/2025 02:00:00 PM, [address] [place] [address] [place], [address], Progress Notes * Todd QUEZADAOB:[birth year] (63 yo M)Acc No.[id number]:04/27/2024 Patient: Kalyan Theo MOSS :1960 A ge:63 Y S ex:Male Address:[address] [place] [address], [phone] * true * Date: Generated for Fer garcia/Perla/Joesmitting on: 07/19/2024 06:38 AM EST
--- OUTSIDE RECORDS SUMMARY | 2024-05-03 04:22 | XMS_ITS ---
Author Organization Ajit Mina III, MD Address [address] [place] [address] Care Team Providers Care C Application Developer Name Role Phone Dr. Ajit Mina III Primary Care Provider [phone] REASON FOR VISIT told patient to call Social History Sex Assigned At : Social History Observation Description Sex Assigned At Male Encounters Encounter Location Date Provider Diagnosis Ajit Mina III, MD [address] [place] [address] [place] [address] 05/03/2024 Ajit Mina Plan Of Treatment Next Appt Details Provider Name:Ajit Mina , 05/23/2025 02:00:00 PM, [address] [place] [address] [place], [address], Progress Notes * Rinku QUEZADAjDOB:[birth year] (63 yo M)Acc No.[id number]:05/03/2024 Patient: Kalyan Theo MOSS :1960 A ge:63 Y S ex:Male Address:[address] [place] [address], [phone] * true * Date: Generated for Fer garcia/Perla/eTransmitting on: 07/19/2024 06:37 AM EST
--- OUTSIDE RECORDS SUMMARY | 2024-05-18 09:00 | XMS_ITS ---
Author Organization Ajit Mina III, MD Address [address] [place] [address] Care Team Providers Care Gynecological Assistant Name Role Phone Dr. Ajit Mina III Primary Care Provider [phone] Allergies Allergen (clinical drug ingredient) Drug/Non Drug Allergy documented on EMR Reaction Allergy Type Onset Date Status Seasonal IC Unknown Drug Allergy Activ e Results Component Value Reference Range Notes URINE DIP STICK Reviewed date:05/18/2024 02:08:48 PM Interpretation: Performing Lab: Notes/Report: SG 1.010 1.005 - 1.025 pH 5.0 5.0 - 9.0 KENTRELL Negative Negative - NIT Negative Negative - PRO Negative Negative - Trace GLU Negative Negative - KET Negative Negative - UBG 0.2 0.1 - 1.8 JEAN Negative 0.2 - 1.3 BLD Negative Negative - REASON FOR VISIT Annual Exam Medications Medication SIG (Take, Route, Frequency, Duration) Notes Start Date End Date Status Clobetasol Propionate 0.05 % 1 application Externally Twice a day 07/24/2023 Active Social History Tobacco Use: Social History Observation Description Date Details (start date - stop date) Never Smoker NA - NA Sex Assigned At : Social History Observation Description Sex Assigned At Male Tobacco Use/Smoking Question Answer Notes Patient is a nonsmoker Additional Findings: Tobacco Non-User Aggressive non-smoker Tobacco Control (Standard) Question Answer Notes Tobacco use: Nonsmoker Additional Findings: Tobacco non-user Aggressive nonsmoker AUDIT-C (Standard) Question Answer Notes Did you have a drink contain ing alcohol in the past year? Yes How often did you have six o r more drinks on one occasion in the past year? Less than monthly (1 point) How many drinks did you have on a typical day when you were drinking in the past year? 1 or 2 drinks (0 point) How often did you have a dri nk containing alcohol in the past year? Never (0 point) Points 1 Interpretation Negative Vital Signs Temperature 98.2 degrees Fahrenheit 05/18/20 24 Blood pressure systolic 124 mm Hg 05/18/20 24 Blood pressure diastolic 77 mm Hg 024 Heart Rate 59 /min 05/18/2024 Height 72.5 in 05/18/2024 Weight 200 lbs 05/18/2024 BMI 26.75 kg/m2 05/18/2024 Encounters Encounter Location Date Provider Diagnosis Ajit Mina III, MD [address] [place] [address] [place] [address] 05/18/2024 Ajit Mina BPH (benign prostati c hyperplasia) N40.0 ; Hyperlipemia E78.5 ; Overweight E66.3 ; Psoriasis L40.9 ; Environmental allergies Z91.09 ; History of inguinal hernia Z87.19 and Open bite of left hand, initial encounter S61.452A Assessments Encounter Date Diagnosis (ICD Code) Assessment Notes Treat ment Notes Treatment Clinical Notes 05/18/2024 BPH (benign prostatic hyperplasia) (ICD-10 - N40.0) We have discussed several modifications in his lifestyle that he could make I would reduce nocturia. 05/18/2024 Hyperlipemia (ICD-10 - E78.5) We discussed weight loss and a low-fat diet. The current fasting lipid profile shows a normal fasting total cholesterol. His triglycerides are slightly elevated. 05/18/2024 Overweight (ICD-10 - E66.3) We continued to discuss diet and nutrition. A made a plan to lose weight, had a rate of one half of a pound per week. 05/18/2024 Psoriasis (ICD-10 - L40.9) He will continue with the medication given him by the technical sourcing recruiter. It was refilled. His psoriasis is mild at this time. 05/18/2024 Environmental allergies (ICD-10 - Z91.09) He has not yet begun to have allergies. We discussed the use of nondrowsy antihistamines. 05/18/2024 History of inguinal hernia (ICD-10 - Z87.19) He is asymptomatic at this time. 05/18/2024 Open bite of left hand, initial encounter (ICD-10 - S61.452A) The erythema has resolved and the wound is healing. Plan Of Treatment Medication Medication Name Sig Start Date Stop Date Notes Clobetasol Propionate 0.05 % 1 applicati on Externally Twice a day 07/24/2023 Pending Test Test Name Order Date PROFILE, FASTING (COMPREHENSIVE METABOLI C) 05/18/2024 PSA, TOTAL 05/18/2024 CBC WITH AUTO DIFF 05/18/2024 Lipid Panel 05/18/2024 Next Appt Details Follow Up: 1 Year, In 5 year s for another colonoscopy, Reason: OV, Routine colonoscopy Provider Name:Ajit Mina , 05/23/2025 02:00:00 PM, [address] [place] [address] [place], [address], Progress Notes * LAMONTECIERA RinkujDOB:[birth year] (63 yo M)Acc No.[id number]:05/18/2024 Progress Notes Patient: Theo ALONSO Provider: Dustin Mina MD :1960 A ge:63 Y S ex:Male Date:05/18/2024 Address:[address] [place] [id number] Subjective: * Chief Complaints: * A nnual Exam * HPI: D epression Screening: PHQ-9 L ittle interest or pleasure in doing things?Not at all F eeling down, depressed, or hopeless N ot at all T rouble falling or staying asleep, or sleeping too much N ot at all F eeling tired or having little energy N ot at all P oor appetite or overeating N ot at all F eeling bad about yourself or that you are a failure, or have let yourself or your family down N ot at all T rouble concentrating on things, such as reading the newspaper or watching television N ot at all M oving or speaking so slowly that other people could have noticed; or the opposite, being so fidgety or restless that you have been moving around a lot more than usual N ot at all T houghts that you would be better off or of hurting yourself in some way N ot at all T otal Score 0 C OVID-19 Screening: Questions H ave you had any new onset fever, chills, cough, congestion, sore throat, shortness of breath, muscle aches? N o H ave you been exposed to the virus within the last 10 days? N o H ave you travelled internationally in the last 10 days? N o H ave you been exposed to COVID-19 in the past? Y es S GENEVIEVE Questions: SDOH Questions I n the past year have you been worried about losing your housing? N o I n the past year have you or any family members you live with been unable to get any of the following when it was really needed? Check all that apply: Geoffrey mckeon to answer * : The patient, a 63-year-old male, presented with a history of a recent colonoscopy where a small polyp was found and removed. The polyp was found to be hyperplastic and of no medical significance. The patient also reported a condition of diverticulosis, which was confirmed by the doctor as a benign normal condition. The patient also reported a sensation of something stuck in his throat at night, which the doctor suggested could be due to postnasal drip. His psoriasis is moderate but does not cause him much distress. He has medication from the technical sourcing recruiter. The hernia has not returned. He is not suffering from allergies. Is trying to control his weight and consume a healthy diet. He rises from sleep once or twice a night to urinate. * ROS: G eneral/Constitutional: pain o nly normal aches and pains. C hills d enies.?Fatigue a dmits. F ever d enies. E NT: Decreased hearing d enies. R espiratory: Cough d enies. C ardiovascular: Chest pain with exertion d enies. D yspnea on exertion?denies. S hortness of breath d enies. G astrointestinal: Constipation o ccasional. D ecreased appetite d enies. D iarrhea d enies. H eartburn o ccasional. N ausea d enies. R ectal bleeding [...] L eft Inguinal hernia repair, Dr. Almanzar, [facility] 2017second left inguinal repair 12/2016Colonoscopy 2018No history * Hospitalization/Major Diagno stic Procedure: N o history * Family History: F ather: alive 90 yrs. M other: alive 89 yrs, Hyperthyroidism, treatment-related hypothyroidism. S on(s): alive. S iblings: alive. M aternal uncle: alive, diagnosed with [...] dditional Findings: Tobacco Non-User A ggressive non-smoker Tobacco Control (Standard) T obacco use: N onsmoker A dditional Findings: Tobacco non-user A ggressive nonsmoker D rugs/Alcohol: D rugs H ave you used drugs other than those for medical reasons in the past 12 months? N o D rug/Alcohol: A KAMILA-C (Standard) D id you have a drink containing alcohol in the past year? Y es H ow often did you have six or more drinks on one occasion in the past year? L ess than monthly (1 point) H ow many drinks did you have on a typical day when you were drinking in the past year? 1 or 2 drinks (0 point) H ow often did you have a drink containing alcohol in the past year? N ever (0 point) P oints 1 I nterpretation N egative José Miguel davis was born in [place]. 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 He has no toxic exposures or history of TB. He has been to Edie for 29 years. He has 3 sons, Indio Brown and Charlie. He is [employer] and lives in [facility]. He works for [employer] in [place]. * Medications: T akingClobetasol Propionate 0.05 % Cream 1 application Externally Twice a day Medication List reviewed and reconciled with the patientTaking Clobetasol Propionate 0.05 % Cream 1 application Externally Twice a day Medication List reviewed and reconciled with the patient * Allergies: S easonal ICno[Allergies Verified] Objective: * Vitals: H t: 72.5, Wt: 200, BMI:26.75, BP: 124/77, HR: 59, Temp: 98.2, Ht-cm: 184.15, Wt- k.72. * P ast Orders: Lab:URINE DIP STICK * Collection Date 05/18/2024 03/03/2023 02/28/2022 Order Date 05/18/2024 03/03/2023 02/28/2022 Result: Normal SG 1.010 (Ref Range: 1.005 - 1.025) 1.010 (Ref Range: 1.005 - 1.025) 1.020 pH 5.0 (Ref Range: 5.0 - 9.0) 6.0 (Ref Range: 5.0 - 9.0) 6 KENTRELL Negative (Ref Range: Negative -) Negative (Ref Range: Negative -) neg NIT Negative (Ref Range: Negative -) Negative (Ref Range: Negative -) neg PRO Negative (Ref Range: Negative - Trace) Negative (Ref Range: Negative - Trace) trace GLU Negative (Ref Range: Negative -) Negative (Ref Range: Negative -) normal KET Negative (Ref Range: Negative -) Negative (Ref Range: Negative -) neg UBG 0.2 (Ref Range: 0.1 - 1.8) 0.2 (Ref Range: 0.1 - 1.8) normal JEAN Negative (Ref Range: 0.2 - 1.3) Negative (Ref Range: 0.2 - 1.3) neg BLD Negative (Ref Range: Negative -) Negative (Ref Range: Negative -) neg Menstrating NR N/A n/a * Lab:Complete Blood Count Aut o Diff * Collection Date 05/16/2024 06/26/2023 02/27/2023 Collection Time 06:36 AM 06:51 AM 06:43 AM Order Date 05/16/2024 06/26/2023 02/27/2023 White Blood Count 5.4 (Ref Range: 4.8-10.8 X10*3/uL) 7.4 (Ref Range: 4.8-10.8 X10*3/uL) 5.2 (Ref Range: 4.8-10.8 X10*3/uL) Red Blood Count 4.82 (Ref Range: 4.60-5.80 X10*6/uL) 4.83 (Ref Range: 4.60-5.80 X10*6/uL) 4.73 (Ref Range: 4.60-5.80 X10*6/uL) Hemoglobin 14.8 (Ref Range: 14.0-18.0 g/dl) 14.7 (Ref Range: 14.0-18.0 g/dl) 14.6 (Ref Range: 14.0-18.0 g/dl) Hematocrit 43.2 (Ref Range: 42.0-52.0 %) 43.1 (Ref Range: 42.0-52.0 %) 42.3 (Ref Range: 42.0-52.0 %) Mean Corpuscular Volume 89.6 (Ref Range: 80.0-98.0 fL) 89.2 (Ref Range: 80.0-98.0 fL) 89.4 (Ref Range: 80.0-98.0 fL) Mean Corpuscular Hemoglobin 30.7 (Ref Range: 27.0-33.0 pg) 30.4 (Ref Range: 27.0-33.0 pg) 30.9 (Ref Range: 27.0-33.0 pg) Mean Corpuscular HGB Conc 34.3 (Ref Range: 31.0-36.0 g/dl) 34.1 (Ref Range: 31.0-36.0 g/dl) 34.5 (Ref Range: 31.0-36.0 g/dl) Red Cell Distribution Width 12.7 (Ref Range: 11.0-16.0 %) 12.5 (Ref Range: 11.0-16.0 %) 12.5 (Ref Range: 11.0-16.0 %) Platelet Count 267 (Ref Range: 160-400 X10*3/uL) 230 (Ref Range: 160-400 X10*3/uL) 244 (Ref Range: 160-400 X10*3/uL) Mean Platelet Volume 9.8 (Ref Range: 9.4-12.4 fL) 9.9 (Ref Range: 9.4-12.4 fL) 9.6 (Ref Range: 9.4-12.4 fL) Neutrophils Percent Auto 51.2 (Ref Range: 45-73 %) 65.8 (Ref Range: 45-73 %) 47.5 (Ref Range: 45-73 %) Imm Gran Pct Auto 0.2 (Ref Range: 0.0-0.4 %) 0.3 (Ref Range: 0.0-0.4 %) 0.8 H (Ref Range: 0.0-0.4 %) Lymphocytes Percent Auto 38.4 (Ref Range: 20-40 %) 23.3 (Ref Range: 20-40 %) 39.6 (Ref Range: 20-40 %) Monocytes Percent Auto 7.3 (Ref Range: 2-11 %) 8.1 (Ref Range: 2-11 %) 8.4 (Ref Range: 2-11 %) Eosinophils Percent Auto 2.2 (Ref Range: 0-4 %) 1.8 (Ref Range: 0-4 %) 3.1 (Ref Range: 0-4 %) Basophils Percent Auto 0.7 (Ref Range: 0-2 %) 0.7 (Ref Range: 0-2 %) 0.6 (Ref Range: 0-2 %) NRBC Pct Auto 0.0 (Ref Range: 0.0-0.2 /100WBC) 0.0 (Ref Range: 0.0-0.2 /100WBC) 0.0 (Ref Range: 0.0-0.2 /100WBC) Neutrophils Absolute Auto 2.8 (Ref Range: 2.0-8.3 x10*3/uL) 4.9 (Ref Range: 2.0-8.3 x10*3/uL) 2.5 (Ref Range: 2.0-8.3 x10*3/uL) Imm Gran Abs Auto 0.01 (Ref Range: 0.00-0.03 X10*3/uL) 0.02 (Ref Range: 0.00-0.03 X10*3/uL) 0.04 H (Ref Range: 0.00-0.03 X10*3/uL) Lymphocytes Absolute Auto 2.1 (Ref Range: 1.2-4.9 X10*3/uL) 1.7 (Ref Range: 1.2-4.9 X10*3/uL) 2.1 (Ref Range: 1.2-4.9 X10*3/uL) Monocytes Absolute Auto 0.4 (Ref Range: 0.1-1.2 X10*3/uL) 0.6 (Ref Range: 0.1-1.2 X10*3/uL) 0.4 (Ref Range: 0.1-1.2 X10*3/uL) Eosinophils Absolute Auto 0.1 (Ref Range: 0.0-0.4 X10*3/uL) 0.1 (Ref Range: 0.0-0.4 X10*3/uL) 0.2 (Ref Range: 0.0-0.4 X10*3/uL) Basophils Absolute Auto 0.0 (Ref Range: 0.0-0.2 X10*3/uL) 0.1 (Ref Range: 0.0-0.2 X10*3/uL) 0.0 (Ref Range: 0.0-0.2 X10*3/uL) NRBC Abs Auto 0.000 (Ref Range: 0.0-0.012 X10*3/uL) 0.000 (Ref Range: 0.0-0.012 X10*3/uL) 0.000 (Ref Range: 0.0-0.012 X10*3/uL) * Lab:Comprehensive [place]. Pane l Fast * Collection Date 05/16/2024 06/26/2023 02/27/2023 Collection Time 06:36 AM 06:51 AM 06:43 AM Order Date 05/16/2024 06/26/2023 02/27/2023 Sodium 137 (Ref Range: 135-145 mmol/L) 140 (Ref Range: 135-145 mmol/L) 139 (Ref Range: 135-145 mmol/L) Bilirubin Total 0.8 (Ref Range: 0.0-1.0 mg/dL) 0.8 (Ref Range: 0.0-1.0 mg/dL) 0.6 (Ref Range: 0.0-1.0 mg/dL) Aspartate Amino Transferase 37 (Ref Range: 5-37 U/L) 23 (Ref Range: 5-37 U/L) 30 (Ref Range: 5-37 U/L) Alanine Aminotransferase 37 (Ref Range: 0-40 U/L) 22 (Ref Range: 0-40 U/L) 35 (Ref Range: 0-40 U/L) Total Protein 7.5 (Ref Range: 6.5-8.0 g/dL) 7.7 (Ref Range: 6.5-8.0 g/dL) 7.4 (Ref Range: 6.5-8.0 g/dL) Albumin Level 4.3 (Ref Range: 3.5-5.0 g/dL) 4.4 (Ref Range: 3.5-5.0 g/dL) 4.4 (Ref Range: 3.5-5.0 g/dL) Alkaline Phosphatase 49 (Ref Range: 39-117 U/L) 49 (Ref Range: 39-117 U/L) 45 (Ref Range: 39-117 U/L) Potassium 3.8 (Ref Range: 3.3-5.1 mmol/L) 3.8 (Ref Range: 3.3-5.1 mmol/L) 4.0 (Ref Range: 3.3-5.1 mmol/L) Chloride 106 (Ref Range: 96-108 mmol/L) 107 (Ref Range: 96-108 mmol/L) 107 (Ref Range: 96-108 mmol/L) Carbon Dioxide 25 (Ref Range: 22-29 mmol/L) 24 (Ref Range: 22-29 mmol/L) 24 (Ref Range: 22-29 mmol/L) Anion Gap 10 L (Ref Range: 12-20) 13 (Ref Range: 12-20) 12 (Ref Range: 12-20) Blood Urea Nitrogen 15 (Ref Range: 9-16 mg/dL) 11 (Ref Range: 9-16 mg/dL) 13 (Ref Range: 9-16 mg/dL) Creatinine 0.76 (Ref Range: 0.5-1.4 mg/dL) 0.84 (Ref Range: 0.5-1.4 mg/dL) 0.83 (Ref Range: 0.5-1.4 mg/dL) Estimated Glomerular Filt Rate > 60 > 60 > 60 Glucose Fasting 91 (Ref Range: 60-99 mg/dL) 91 (Ref Range: 60-99 mg/dL) 91 (Ref Range: 60-99 mg/dL) Calcium 8.7 (Ref Range: 8.4-10.2 mg/dL) 9.3 (Ref Range: 8.4-10.2 mg/dL) 9.1 (Ref Range: 8.4-10.2 mg/dL) * Lab:Lipid Panel * Collection Date 05/16/2024 06/26/2023 02/27/2023 Collection Time 06:36 AM 06:51 AM 06:43 AM Order Date 05/16/2024 06/26/2023 02/27/2023 Triglycerides 157 H (Ref Range: <150 mg/dL) 160 H (Ref Range: <150 mg/dL) 190 H (Ref Range: <150 mg/dL) Cholesterol 199 (Ref Range: <200 mg/dL) 196 (Ref Range: <200 mg/dL) 214 H (Ref Range: <200 mg/dL) LDL Cholesterol Calculated 125 H (Ref Range: <100 mg/dL) 119 H (Ref Range: <100 mg/dL) 139 H (Ref Range: <100 mg/dL) HDL Cholesterol 43 (Ref Range: >40 mg/dL) 45 (Ref Range: >40 mg/dL) 37 L (Ref Range: >40 mg/dL) * Lab:Prostate Specific Antige n * Collection Date 05/16/2024 06/26/2023 02/27/2023 Collection Time 06:36 AM 06:51 AM 06:43 AM Order Date 05/16/2024 06/26/2023 02/27/2023 Prostate Specific Antigen 0.99 (Ref Range: <0.05-4.0 ng/mL) 1.15 (Ref Range: <0.05-4.0 ng/mL) 0.81 (Ref Range: <0.05-4.0 ng/mL) * Examination: G eneral Examination: GENERAL APPEARANCE: [...] normal, no ascites, no organomegaly, no mass, overweight, Hernniorrhaphy,. RECTAL EXAM: n ot examined because of recent colonoscopy.? MUSCULOSKELETAL: e xtremities unremarkable, no clubbing, cyanosis or edema. PERIPHERAL PULSES: n ormal. NEUROLOGIC: a lert and oriented, cranial nerves 2-12 grossly intact, deep tendon reflexes 2+ symmetrical, motor strength normal upper and lower extremities, sensory exam intact. PSYCH: a lert, oriented. - : L ely Examination:No issues found, Heart Examination: No issues found. Assessment: * Assessment: 1. H yperlipemia - E78.5 (Primary) N otes :We discussed weight loss and a low-fat diet. The current fasting lipid profile shows a normal fasting total cholesterol. His triglycerides are slightly elevated. 2 . B PH (benign prostatic hyperplasia) - N40.0 N otes :We have discussed several modifications in his lifestyle that he could make I would reduce nocturia. 3 . O verweight - E66.3 N otes :We continued to discuss diet and nutrition. A made a plan to lose weight, had a rate of one half of a pound per week. 4 . P soriasis - L40.9 N otes :He will continue with the medication given him by the technical sourcing recruiter. It was refilled. His psoriasis is mild at this time. 5 . E nvironmental allergies - Z91.09 N otes :He has not yet begun to have allergies. We discussed the use of nondrowsy antihistamines. 6 . H istory of inguinal hernia - Z87.19 N otes :He is asymptomatic at this time. 7 . O pen bite of left hand, initial encounter - S61.452A N otes :The erythema has resolved and the wound is healing. Plan: * Treatment: 2. O thers Continue Clobetasol Propionate Cream, 0.05 %, 1 application, Externally, Twice a day. * Labs: * L ab: URINE DIP STICK (Collection Date & Time - 05/18/2024) Value Reference Range S G 1.010 1.005 - 1.025 * p H 5.0 5.0 - 9.0 * L EU Negative Negative - * N IT Negative Negative - * P RO Negative Negative - Trace * G JAZMYNE Negative Negative - * K ET Negative Negative - * U BG 0.2 0.1 - 1.8 * B IL Negative 0.2 - 1.3 * B LD Negative Negative - * Procedure Codes: 8 1002 URINE-NO MICRO * Preventive Medicine: Counseling: C are goal [...] Other reason not done * Follow Up: 1 Year, In 5 years for another colonoscopy (Reason: OV, Routine colonoscopy) * Images: * Sign off status: Completed true * Provider: Dustin Mina MD Date: 07/19/2023 Generated for Fer garcia/Perla/eTransmitting on: 1 07/19/2024 06:37 AM EST History and Physical Notes * HPI (History of Present Illness) Category Sub-Category Detail Notes Depression Screening PHQ-9 Little inte rest or pleasure in doing things: Not at all Feeling down, depressed, or hopeless: No t at all Trouble falling or staying asleep, or sl eeping too much: Not at all Feeling tired or having little energy: N ot at all Poor appetite or overeating: Not at all Feeling bad about yourself o r that you are a failure, or have let yourself or your family down: Not at all Trouble concentrating on thi ngs, such as reading the newspaper or watching television: Not at all Moving or speaking so slowly that other people could have noticed; or the opposite, being so fidgety or restless that you have been moving around a lot more than usual: Not at all Thoughts that you would be b julius off or of hurting yourself in some way: Not at all Total Score: 0 COVID-19 Screening Questions Have you had any new onset fever, chills, cough, congestion, sore throat, shortness of breath, muscle aches?: No Have you been exposed to the virus withi n the last 10 days?: No Have you travelled internationally in e last 10 days?: No Have you been exposed to COVID-19 in the past?: Yes SDOH Questions SDOH Questions In the past year have you been worried about losing your housing?: No In the past year have you or any family members you live with been unable to get any of the following when it was really needed? Check all that apply:: Decline to answer Examination Category Sub-Category Detail Notes General Examination [...] normal, no ascites, no organomegaly, no mass, overweight, Hernniorrhaphy, NEUROLOGIC: alert and oriented, cranial nerves 2-12 grossly intact, deep tendon reflexes 2+ symmetrical, motor strength normal upper and lower extremities, sensory exam intact SKIN: no suspicious lesion s, anicteric PERIPHERAL PULSES: normal BREASTS: no masses palpable b ilaterally MUSCULOSKELETAL: extremities unremark able, no clubbing, cyanosis or edema LYMPH NODES: no enlarged lymph no graham,spleen normal RECTAL EXAM: not examined because of recent colonoscopy PSYCH: alert, oriented ORAL CAVITY: normal, unremarkable
--- OUTSIDE RECORDS SUMMARY | 2024-09-16 04:10 | XMS_ITS ---
Author Organization Ajit iMna III, MD Address [address] [place] [address] Care Team Providers Care Vacuum Pan Tender Name Role Phone Dr. Ajit Mina III Primary Care Provider Social History Sex Assigned At : Social History Observation Description Sex Assigned At Male Encounters Encounter Location Date Provider Diagnosis Ajit Mina III, MD [address] [place] [address] [place] [address] 09/16/2024 Ajit Mina Plan Of Treatment Next Appt Details Provider Name:Ajit Mina , 05/23/2025 02:00:00 PM, [address] [place] [address] [place], [address], Progress Notes * Todd QUEZADAOB:[birth year] (64 yo M)Acc No.[id number]:09/16/2024 Patient: Kalyan Theo MOSS :1960 A ge:64 Y S ex:Male Address:[address] [place] [address], [address] * true * Date: Generated for Fer garcia/Perla/Joesmitting on: 07/19/2024 06:38 AM EST
--- OUTSIDE RECORDS SUMMARY | 2024-09-16 05:32 | XMS_ITS ---
Author Organization Ajit Mina III, MD Address [address] [place] [address] Care Team Providers Care Sales Order Administrator Name Role Phone Dr. Ajit Mina III Primary Care Provider [phone] Medications Medication SIG (Take, Route, Frequency, Duration) Notes Start Date End Date Status Amoxicillin-Pot Clavulanate 875-125 MG 1 tablet Orally every 12 hrs for 7 days 09/16/2024 09/23/2024 Active Social History Sex Assigned At : Social History Observation Description Sex Assigned At Male Encounters Encounter Location Date Provider Diagnosis Ajit Mina III, MD [address] [place] [address] [place] [address] 09/16/2024 Ajit Mina Plan Of Treatment Medication Medication Name Sig Start Date Stop Date Notes Amoxicillin-Pot Clavulanate 875-125 MG 1 tablet Orally every 12 hrs for 7 days 09/16/2024 09/23/2024 Next Appt Details Provider Name:Ajit Mina , 05/23/2025 02:00:00 PM, [address] [place] [address] [place], [address], Progress Notes * Todd QUEZADAOB:[birth year] (64 yo M)Acc No.[id number]:09/16/2024 Patient: Kalyan Theo MOSS :1960 A ge:64 Y S ex:Male Address:[address] [place] [address], [phone] * Refills Start Amoxicillin-Pot Clavulanate Tablet, 875-125 MG, Orally, 14 Tablet, 1 tablet, every 12 hrs, 7 days, Refills=0 * true * Date: Generated for Fer garcia/Perla/Lizbet on: 07/19/2024 06:38 AM EST
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
--- OUTSIDE RECORDS SUMMARY | 2025-05-18 06:38 | XMS_ITS | Patient Health Record ---
Author Organization [facility] Address [address] [place] [address] Care Team Providers Care Fold Skiver Name Role Phone Ajit Mina MD Primary Care Provider UnavailAjit Giles Unavailable [phone] Allergies No Known Allergies Reason For Referral No Information Medications Medication SIG (Take, Route, Frequency, Duration) Notes Start Date End Date Status Clobetasol Propionate 0.05 % Ointment External; Duration: 30 Activ e Social History Tobacco Use: Social History Observation Description Date Details (start date - stop date) Never Smoker NA - NA Social History Drugs/Alcohol: Social Info Question Answer Notes Alcohol Screen Did you have a drink containing alcohol in the past year? Yes How often did you have a drink containing alcohol in the past year? Monthly or less (1 point) How many drinks did you have on a typical day when you were drinking in the past year? 1 or 2 drinks (0 point) How often did you have 6 or more drinks on one occasion in the past year? 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 Section Notes: Nonsmoker; no sig alcohol He came from [place] in 1988 Problems Problem Type SNOMED Code ICD Code Onset Dates Problem Status W/U Status Risk Notes Problem Colon cancer screening (788245693) Colon cancer screening (Z12.11) Active confirmed Problem History of adenomatous polyp of colon (643786412) History of adenomatous polyp of colon (Z86.010) Active confirmed Problem Pre-procedure evaluation check (230145559) Encounter for other preprocedural examination (Z01.818) Active confirmed Problem Diverticular disease of colon (368531172) Diverticulosis of large intestine without perforation or abscess without bleeding (K57.30) Active confirmed Plan Of Treatment Future Test Test Name Order Date COLONOSCOPY 07/23/2023 Insurance Providers Payer Name Payer Address Payer Phone Subscriber Number Group Number Insured Name Patient Relationship to Insured Coverage Start Date Coverage End Date [facility] [place] [employer] [address] [place] [address] [id number] CRISTINE QUEZADA Self - patient is the insured Medical (General) History Medical History History ICD Code Denies NH,DM,CVA,Lung disease,renal dise ase Colonoscopy 07/2018 with yanet ciro of a small rectal tubular adenoma--by Dr. Santamaria Surgical History Surgery Date(Month/Year) Left ingiuinal hernia X 2 with a mesh 20 18
[2025-05-18 10:22] LABS: MANUAL DIFF FLAG NO
[2025-05-18 10:25] LABS: Hematocrit 43.2 % (42.0-52.0); Hemoglobin 14.8 g/dl (14.0-18.0); Imm Gran Abs Auto 0.01 X10*3/uL (0.00-0.03); Imm Gran Pct Auto 0.2 % (0.0-0.4); Lymphocytes Absolute Auto 1.7 X10*3/uL (1.2-4.9); Mean Corpuscular HGB Conc 34.3 g/dl (31.0-36.0); Mean Corpuscular Hemoglobin 30.7 pg (27.0-33.0); Mean Corpuscular Volume 89.6 fL (80.0-98.0); NRBC Abs Auto 0.000 X10*3/uL (0.0-0.012); NRBC Pct Auto 0.0 /100WBC (0.0-0.2); Platelet Count 231 X10*3/uL (160-400); Red Blood Count 4.82 X10*6/uL (4.60-5.80); White Blood Count 5.0 X10*3/uL (4.8-10.8)
[2025-05-18 11:02] LABS: Alanine Aminotransferase 39 U/L (0-40); Albumin Level 4.5 g/dL (3.5-5.0); Alkaline Phosphatase 55 U/L (39-117); Anion Gap 10 (12-20); Aspartate Amino Transferase 36 U/L (5-37); Blood Urea Nitrogen 18 mg/dL (9-16); Calcium 9.2 mg/dL (8.4-10.2); Carbon Dioxide 25 mmol/L (22-29); Chloride 108 mmol/L (96-108); Cholesterol 196 mg/dL (<200); Estimated Glomerular Filt Rate > 60; HDL Cholesterol 42 mg/dL (>40); Potassium 4.1 mmol/L (3.3-5.1); Sodium 139 mmol/L (135-145); Total Protein 7.3 g/dL (6.5-8.0); Triglycerides 115 mg/dL (<150)
[2025-05-18 11:30] LABS: Prostate Specific Antigen 0.77 ng/mL (<0.05-4.0)
== END 2025-05-18 06:34 ==
LOC: HO.HMGCLDS 06:33
PROVIDERS: PCP Internal Medicine Medical Oncology; Visit Provider Internal Medicine Medical Oncology
DX: N40.0 Benign prostatic hyperplasia without lower urinary tract symptoms (principal); Z12.5 Encounter for screening for malignant neoplasm of prostate; Z13.6 Encounter for screening for cardiovascular disorders
CPT/HCPCS: 36415; 80053; 80061; 84153; 85025